=== PATIENT | male | born 1985 | race Caucasian/White ===

== ENCOUNTER 2021-12-25 23:09 | Emergency (ER) | payer OTHER ==
[~2021-12-25] VITALS: Ht 193 cm; Wt 154.2 kg
== END 2021-12-26 01:30 | disposition home or self-care (01) ==
LOC: ER 23:14
DX: S06.0X0A Concussion without loss of consciousness, initial encounter (principal); W01.10XA Fall on same level from slipping, tripping and stumbling with subsequent striking against unspecified object, initial encounter
CPT/HCPCS: 70450; 99283